=== PATIENT | male | born 1990 | race American Indian/Alaskan Native ===

== ENCOUNTER 2019-03-21 08:36 | Emergency (ER) | payer OTHER ==
[2019-03-21 08:41] VITALS: BP 134/92
[2019-03-21] MEDS ORDERED: IBUPROFEN PO ONE (09:53)
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
--- NOTE | 2019-03-21 11:45 | XRay Report ---
Cervical spine, 3 views INDICATION: neck pain. COMPARISON: None. IMPRESSION: Normal alignment. No significant discogenic DJD or facet arthropathy. No acute osseous or soft tissue abnormality. Signer Name: Koby Wall Jr, MD Signed: 03/21/2019 11:40 AM Workstation Name: [id number]
== END 2019-03-21 12:11 | disposition home or self-care (01) ==
LOC: ED 08:36
DX: S13.4XXA Sprain of ligaments of cervical spine, initial encounter (principal); Z87.891 Personal history of nicotine dependence; V89.2XXA Person injured in unspecified motor-vehicle accident, traffic, initial encounter; Y93.89 Activity, other specified; Y92.410 Unspecified street and highway as the place of occurrence of the external cause; Y99.8 Other external cause status
CPT/HCPCS: 72040